=== PATIENT | female | born 1935 | race Caucasian/White ===

== ENCOUNTER 2019-12-02 18:05 | Emergency (ER) | payer MEDICARE ==
[~2019-12-02] VITALS: Ht 157.5 cm; Wt 68.0 kg
[2019-12-02 18:45] LABS: BASOPHILS % 0.4 % (0.0-1.0); EOSINOPHILS # (AUTO) 0.3 (0.0-0.4); EOSINOPHILS % 3.7 % (0.0-6.0); HEMOGLOBIN 11.9 g/dL (12.0-16.0); LYMPHOCYTES # (AUTO) 2.3 (1.0-3.2); LYMPHOCYTES % 32.1 % (18.0-39.1); MEAN CORPUSCULAR HEMOGLOBIN 28.4 pg (28-32); MEAN CORPUSCULAR HGB CONC 31.3 g/dL (31-35); MEAN CORPUSCULAR VOLUME 90.7 fL (81-99); MONOCYTES # (AUTO) 0.7 (0.2-0.8); MONOCYTES % 9.9 % (4.4-11.3); NEUTROPHILS # (AUTO) 3.8 (2.1-6.9); NEUTROPHILS % 53.5 % (38.7-80.0); PLATELET COUNT 262 x10e3/uL (140-360); RED BLOOD COUNT 4.19 x10e6/uL (3.6-5.1); RED CELL DISTRIBUTION WIDTH 13.6 % (11.7-14.4)
--- NOTE | 2019-12-02 18:56 | Emergency Department Note ---
History of Present Illnes History of Present Illness Chief Complaint: COVID PUI History of Present Illness This is a 84 year old female [employer]ONIAL [employer] PT SENT FOR AMS. [facility].....PT FROM [facility]. PT IS AWAKE AND TALKING AAOX2 TO 3. NAME, PLACE, AGE. DEEPAK FOURNIER STATES PT DOESNT WALK AND GETS AROUND IN A WHEELCHAIR. [place] FELT PT WAS ACTING HERSELF. ALSO PT HAD POSITIVE COVID TEST AT [facility] . Historian: Patient, Payment Manager/EMS Arrival Mode: WILL EMS Treatment PHYSICS TEACHER: See EMS Report Additional Treatment PHYSICS TEACHER: DEEPAK FOURNIER Onset (how long ago): unknown Location: none Quality: reported worse than normal ams Severity: mild Onset quality: unable to specify Timing of current episode: unable to specify Progression: unable to specify Context: Reports recent illness (positive for covid 19) Relieving factors: none Exacerbating factors: none Associated symptoms: Reports denies other symptoms Past Medical/Family History Physician Review I have reviewed the patient's past medical and family history. Any updates have been documented here. Past Medical History Recent Fever: Yes Clinical Suspicion of Infectio: Yes New/Unexplained Change in Ment: Yes Past Medical History: COPD, Asthma Other Medical History: DEMENTIA GERD MUSCLE WEAKNESS Past Surgical History: Cholecysctectomy, Appendectomy, Hysterectomy Social History Smoking Cessation: Never Smoker Counseling Performed: No Alcohol Use: None Any Illegal Drug Use: No Other Last Tetanus: UNK Any Pre-Existing Lines (PICC,: No Review of Systems Review of Systems Neurological: Reports as per HPI Physical Exam Related Data Allergies: Coded Allergies: iodine (Verified Allergy, Intermediate, 04/23/19) Triage Vital Signs Vital Signs Date Time Temp Pulse Resp B/P (MAP) Pulse Ox O2 Delivery O2 Flow Rate FiO2 12/02/19 18:07 97.8 79 20 121/94 98 Room Air Vital signs reviewed: Yes Physical Exam CONSTITUTIONAL Constitutional: Present well-developed, Present well-nourished HENT HENT: Present normocephalic, Present atraumatic, Present oropharynx clear/moist, Present nose normal HENT L/R: Present left ext ear normal, Present right ext ear normal EYES Eyes: Reports PERRL, Reports conjunctivae normal NECK Neck: Present ROM normal PULMONARY Pulmonary: Present effort normal, Present breath sounds normal CARDIOVASCULAR Cardiovascular: Present regular rhythm, Present heart sounds normal, Present capillary refill normal, Present normal rate GASTROINTESTINAL Abdominal: Present soft, Present nontender, Present bowel sounds normal GENITOURINARY Genitourinary: Present exam deferred SKIN Skin: Present warm, Present dry MUSCULOSKELETAL Musculoskeletal: Present ROM normal NEUROLOGICAL Neurological: Present alert, Present no gross motor or sensory deficits, Present other (pt keenly alert oriented to person and place, only disoriented saud time, states does not know why she is here) PSYCHOLOGICAL Psychological: Present mood/affect normal, Present judgement normal Results Laboratory Laboratory Laboratory Tests Test 12/02/19 19:51 12/02/19 18:22 Urine Color Yellow (YELLOW) Urine Clarity Clear (CLEAR) Urine pH 5.5 (5 - 7) Urine Specific [place] 1.025 (1.010-1.025) Urine Protein Negative (NEGATIVE) Urine Glucose (UA) Negative (NEGATIVE) Urine Ketones Trace (NEGATIVE) Urine Blood Negative (NEGATIVE) Urine Nitrite Negative (NEGATIVE) Urine Bilirubin 1+ (NEGATIVE) Urine Urobilinogen 0.2 mg/dL (0.2 - 1) Urine Leukocyte Esterase Negative (NEGATIVE) Urine RBC 0-5 /HPF (0-5) Urine WBC 0-5 /HPF (0-5) Urine Epithelial Cells Rare /LPF (NONE) Urine Bacteria Rare /HPF (NONE) White Blood Count 7.04 x10e3/uL (4.8-10.8) Red Blood Count 4.19 x10e6/uL (3.6-5.1) Hemoglobin 11.9 g/dL (12.0-16.0) Hematocrit 38.0 % (34.2-44.1) Mean Corpuscular Volume 90.7 fL (81-99) Mean Corpuscular Hemoglobin 28.4 pg (28-32) Mean Corpuscular Hemoglobin Concent 31.3 g/dL (31-35) Red Cell Distribution Width 13.6 % (11.7-14.4) Platelet Count 262 x10e3/uL (140-360) Neutrophils (%) (Auto) 53.5 % (38.7-80.0) Lymphocytes (%) (Auto) 32.1 % (18.0-39.1) Monocytes (%) (Auto) 9.9 % (4.4-11.3) Eosinophils (%) (Auto) 3.7 % (0.0-6.0) Basophils (%) (Auto) 0.4 % (0.0-1.0) Neutrophils # (Auto) 3.8 (2.1-6.9) Lymphocytes # (Auto) 2.3 (1.0-3.2) Monocytes # (Auto) 0.7 (0.2-0.8) Eosinophils # (Auto) 0.3 (0.0-0.4) Basophils # (Auto) 0.0 (0.0-0.1) Absolute Immature Granulocyte (auto 0.03 x10e3/uL (0-0.1) Sodium Level 138 mmol/L (136-145) Potassium Level 3.6 mmol/L (3.5-5.1) Chloride Level 102 mmol/L (98-107) Carbon Dioxide Level 23 mmol/L (22-29) Anion Gap 16.6 mmol/L (8-16) Blood Urea Nitrogen 13 mg/dL (7-26) Creatinine 0.77 mg/dL (0.57-1.11) Estimat Glomerular Filtration Rate > 60 ML/MIN (60-) BUN/Creatinine Ratio 17 (6-25) Glucose Level 86 mg/dL (74-118) Calcium Level 8.5 mg/dL (8.4-10.2) Total Bilirubin 0.4 mg/dL (0.2-1.2) Aspartate Amino Transf (AST/SGOT) 15 IU/L (5-34) Alanine Aminotransferase (ALT/SGPT) 8 IU/L (0-55) Alkaline Phosphatase 56 IU/L (40-150) Total Protein 6.7 g/dL (6.5-8.1) Albumin 3.2 g/dL (3.5-5.0) Globulin 3.5 g/dL (2.3-3.5) Albumin/Globulin Ratio 0.9 (0.8-2.0) Laboratory Tests Test 12/02/19 18:22 Lab results reviewed: Yes Imaging Imaging results reviewed: Yes Impressions no acute findings, no infiltrates Assessment & Plan Medical Decision Making [facility] pt sent from senior care for reported ams, pt with dementia is alert and oriented to person and place cbc, cmp, ua, cxr ordered to eval for electrolyte abnormality, uti, leukocytosis, pneumonia Assessment & Plan Final Impression: (1) Lab test positive for detection of COVID-19 virus (2) Dementia Depart Disposition: HOME, SELF-CARE Last Vital Signs Date Time Temp Pulse Resp B/P (MAP) Pulse Ox O2 Delivery O2 Flow Rate FiO2 12/02/19 18:19 98.4 64 16 115/37 98 Room Air OLGA REEVES MD Dec 02, 2019 18:56
[2019-12-02 19:09] LABS: ALANINE AMINOTRANSFERASE 8 IU/L (0-55); ALBUMIN 3.2 g/dL (3.5-5.0); ALBUMIN/GLOBULIN RATIO 0.9 (0.8-2.0); ALKALINE PHOSPHATASE 56 IU/L (40-150); ANION GAP 16.6 mmol/L (8-16); BLOOD UREA NITROGEN 13 mg/dL (7-26); BUN/CREATININE RATIO 17 (6-25); CALCIUM 8.5 mg/dL (8.4-10.2); CARBON DIOXIDE 23 mmol/L (22-29); CHLORIDE 102 mmol/L (98-107); CREATININE, SERUM 0.77 mg/dL (0.57-1.11); EST GLOMERULAR FILTRATION RATE > 60 ML/MIN (60-); GLUCOSE 86 mg/dL (74-118); POTASSIUM 3.6 mmol/L (3.5-5.1); SODIUM 138 mmol/L (136-145)
[2019-12-02 20:02] LABS: CLARITY,URINE CLEAR (CLEAR); COLOR,URINE YELLOW (YELLOW); LEUKOCYTE ESTERASE ,URINE NEGATIVE (NEGATIVE); NITRITE,URINE NEGATIVE (NEGATIVE); PROTEIN,URINE DIPSTICK NEGATIVE (NEGATIVE)
[2019-12-02 20:03] LABS: BILIRUBIN,URINE 1+ (NEGATIVE); KETONES,URINE TRACE (NEGATIVE); URINE UROBILINOGEN 0.2 mg/dL (0.2 - 1)
[2019-12-02 20:20] LABS: BACTERIA,URINE RARE /HPF; EPITHELIAL CELLS,URINE RARE /LPF; RBC,URINE 0-5 /HPF (0-5); WBC,URINE (MAN) 0-5 /HPF (0-5)
--- OUTSIDE RECORDS SUMMARY | 2019-12-02 20:50 | XMS REPORT | Continuity of Care Document ---
Author Author [facility] Organization [facility] Address [address] [place] [address] Phone Unavailable Care Team Providers Care Label Machine Operator Name Role Phone RONEL ALMENDAREZ MD PCP Elías REEEVS Unavailable Payers Payer Name Policy Type Policy Number Effective Date Expiration Date [id number] 2005 00:00:00 [facility] Medicare A & B [id number] 2002 00:00:00 [facility] Problems This patient has no known problems. Allergies, Adverse Reactions, Alerts Allergy Name Allergy Type Status Severity Reaction(s) Onset Date Inacti ve Date Treating Clinician Comments Source Iodinated Contrast- Oral and IV Dye DA Active MO 2019-05-16 5 00:00:00 [facility] Iodinated Contrast- Oral and IV Dye DA Active MO 2019-04-17 1 00:00:00 [facility] Iodine Allergy to Substance Active Moderate 2019-04-23 00:00:00 [facility] Iodinated Contrast- Oral and IV Dye DA Active MO 2019-02-14 2 00:00:00 [facility] Iodinated Contrast- Oral and IV Dye DA Active MO 2014-11-13 5 00:00:00 [facility] Medications This patient has no known medications. Procedures Procedure Date / Time Performed Performing Clinician Vilma valderrama Computed tomography of brain without radiopaque contrast 00:00:00 OLGA REEVES [facility] Computed tomography of cervical spine without contrast 04-23 00:00:00 OLGA REEVES [facility] Encounters Start Date/Time End Date/Time Encounter Type Admission Type Attendi [facility] Care Department Encounter ID Source 2019-04-23 19:42:00 2019-04-23 23:15:00 Departed Emergency Room 1 OLGA REEVES [facility] [id number] [facility] Results Test Description Test Time Test Comments Results Result Comments Source URINALYSIS COMPLETE 2019-05-30 20:52:00 Test Item UA COLOR (test code = COLU) YELLOW YELLOW UA APPEARANCE (test code = APPU) TURBID CLEAR A UA GLUCOSE DIPSTICK (test code = DGLUU) NEGATIVE mg/dL NEGATIVE UA BILIRUBIN DIPSTICK (test code = BILU) NEGATIVE mg/dL NEGATIVE UA KETONE DIPSTICK (test code = KETU) 40 (2+) mg/dL NEGATIVE A UA SPECIFIC GRAVITY (test code = SGU) 1.024 1.001-1.035 UA BLOOD DIPSTICK (test code = JONH) 0.2 mg/dL (2+) mg/dL NEGATIVE A UA PH DIPSTICK (test code = BRISSA) 5.5 5.0-8.0 UA PROTEIN DIPSTICK (test code = PROU) 70 (1+) mg/dL NEGATIVE A UA UROBILINIOGEN DIPSTICK (test code = URO) Normal mg/dL NEGATIVE UA NITRITE DIPSTICK (test code = KARELY) POSITIVE NEGATIVE A UA LEUKOCYTE ESTERASE W REFLEX (test code = LEUUR) 500 Deirdre/u L (3+) Deirdre/uL NEGATIVE A UA WBC (test code = WBCU) >200 per HPF 0-5 A UA RBC (test code = RBCU) 6-10 #/HPF 0-5 A UA WBC CLUMPS (test code = WBCUCL) >10 /HPF NONE A UA EPITHELIAL CELLS (test code = EPIU) FEW per HPF FEW UA BACTERIA (test code = BACU) MANY #/HPF NONE A UA MUCUS (test code = MUCU) FEW #/LPF FEW Urine Source? Clean CatchURINALYSIS [id number] 20:43:00* Test Item Value Reference Range Interpretation Comments UA COLOR (test code = COLU) YELLOW YELLOW UA APPEARANCE (test code = APPU) TURBID CLEAR A UA GLUCOSE DIPSTICK (test code = DGLUU) NEGATIVE mg/dL NEGATIVE UA BILIRUBIN DIPSTICK (test code = BILU) NEGATIVE mg/dL NEGATIVE UA KETONE DIPSTICK (test code = KETU) 40 (2+) mg/dL NEGATIVE A UA SPECIFIC GRAVITY (test code = SGU) 1.024 1.001-1.035 UA BLOOD DIPSTICK (test code = JONH) 0.2 mg/dL (2+) mg/dL NEGATIVE A UA PH DIPSTICK (test code = BRISSA) 5.5 5.0-8.0 UA PROTEIN DIPSTICK (test code = PROU) 70 (1+) mg/dL NEGATIVE A UA UROBILINIOGEN DIPSTICK (test code = URO) Normal mg/dL NEGATIVE UA NITRITE DIPSTICK (test code = KARELY) POSITIVE NEGATIVE A UA LEUKOCYTE ESTERASE W REFLEX (test code = LEUUR) 500 Deirdre/u L (3+) Deirdre/uL NEGATIVE A UA WBC (test code = WBCU) per HPF 0-5 UA RBC (test code = RBCU) per HPF 0-5 UA EPITHELIAL CELLS (test code = EPIU) per HPF Few UA BACTERIA (test code = BACU) per HPF NONE Urine Source? Clean CatchBASIC METABOLIC [id number] 18:20:00* Test Item Value Reference Range Interpretation Comments SODIUM (test code = NA) 134 mmol/L 136-145 L POTASSIUM (test code = K) 3.5 mmol/L 3.5-5.1 N CHLORIDE (test code = CL) 98.0 mmol/L 98-107 N CARBON DIOXIDE (test code = CO2) 29.0 mmol/L 21-32 N ANION GAP (test code = GAP) 10.5 10-20 N GLUCOSE (test code = GLU) 96 mg/dL 74-106 N BLOOD UREA NITROGEN (test code = BUN) 17 mg/dL 7-18 N GLOMERULAR FILTRATION RATE (test code = GFR) 53 mL/min >=60 Estimated GFR by using Modified MDRD formula.Chronic kidney disease is defined as either kidney damageor GFR <60 mL/min/1.73 m2 for >3 months. CREATININE (test code = CREAT) 1.00 mg/dL 0.55-1.02 N Note change in reference range due to change in reagent. BUN/CREATININE RATIO (test code = BUN/CREA) 17.0 10-20 N CALCIUM (test code = CA) 9.0 mg/dL 8.5-10.1 N HEPATIC FUNCTION [id number] 18:20:00* Test Item Value Reference Range Interpretation Comments TOTAL PROTEIN (test code = PROT) 7.8 gram/dL 6.4-8.2 N ALBUMIN (test code = ALB) 3.0 g/dL 3.4-5.0 L GLOBULIN (test code = GLOB) 4.8 gram/dL 2.7-4.2 H ALBUMIN/GLOBULIN RATIO (test code = A/G) 0.6 0.75-1.50 L BILIRUBIN TOTAL (test code = BILT) 0.60 mg/dL 0.0-1.0 N BILIRUBIN DIRECT (test code = BILD) 0.17 mg/dL 0.0-0.20 N SGOT/AST (test code = AST) 10 IUnit/L 15-37 L SGPT/ALT (test code = ALT) 13 IUnit/L 12-78 N ALKALINE PHOSPHATASE TOTAL (test code = ALKP) 87 IUnit/L 45-117 N Note change in reference range due to change in reagent. [id number] 18:20:00* Test Item Value Reference Range Interpretation Comments TROPONIN-I (test code = TROPI) <0.015 ng/mL 0-0.045 N BASIC METABOLIC [id number] 18:14:00* Test Item Value Reference Range Interpretation Comments SODIUM (test code = NA) 134 mmol/L 136-145 L POTASSIUM (test code = K) 3.5 mmol/L 3.5-5.1 N CHLORIDE (test code = CL) 98.0 mmol/L 98-107 N CARBON DIOXIDE (test code = CO2) mmol/L 21-32 ANION GAP (test code = GAP) 10-20 GLUCOSE (test code = GLU) mg/dL 74-106 BLOOD UREA NITROGEN (test code = BUN) mg/dL 7-18 GLOMERULAR FILTRATION RATE (test code = GFR) mL/min >=60 CREATININE (test code = CREAT) mg/dL 0.55-1.02 BUN/CREATININE RATIO (test code = BUN/CREA) 10-20 CALCIUM (test code = CA) mg/dL 8.5-10.1 HEPATIC FUNCTION [id number] 18:14:00* Test Item Value Reference Range Interpretation Comments TOTAL PROTEIN (test code = PROT) gram/dL 6.4-8.2 ALBUMIN (test code = ALB) g/dL 3.4-5.0 GLOBULIN (test code = GLOB) gram/dL 2.7-4.2 ALBUMIN/GLOBULIN RATIO (test code = A/G) 0.75-1.50 BILIRUBIN TOTAL (test code = BILT) mg/dL 0.0-1.0 BILIRUBIN DIRECT (test code = BILD) mg/dL 0.0-0.20 SGOT/AST (test code = AST) IUnit/L 15-37 SGPT/ALT (test code = ALT) IUnit/L 12-78 ALKALINE PHOSPHATASE TOTAL (test code = ALKP) IUnit/L 45-117 [id number] 18:14:00* Test Item Value Reference Range Interpretation Comments TROPONIN-I (test code = TROPI) ng/mL 0-0.045 CBC W/AUTO [id number] 18:04:00* Test Item Value Reference Range Interpretation Comments WHITE BLOOD CELL (test code = WBC) 9.0 K/mm3 4.5-12.5 N RED BLOOD CELL (test code = RBC) 4.48 mill/mm3 3.7-5.2 N HEMOGLOBIN (test code = HGB) 13.2 gram/dL 11.5-15.5 N HEMATOCRIT (test code = HCT) 40.4 % 36.0-46.0 N MEAN CELL VOLUME (test code = MCV) 90.2 fL 80-98 N MEAN CELL HGB (test code = MCH) 29.5 picogram 27.0-33.0 N MEAN CELL HGB CONCETRATION (test code = MCHC) 32.7 gram/dL 33.0-36. 0 L RED CELL DISTRIBUTION WIDTH (test code = RDW) 13.0 % 11.6-16. 2 N RED CELL DISTRIBUTION WIDTH SD (test code = RDW-SD) 43.1 fL 37 .0-51.0 N PLATELET COUNT (test code = PLT) 292 K/mm3 150-450 N MEAN PLATELET VOLUME (test code = MPV) 8.8 fL 6.7-11.0 N NEUTROPHIL % (test code = NT%) 68.9 % 39.0-69.0 N IMMATURE GRANULOCYTE % (test code = IG%) 0.7 % 0.0-5.0 N LYMPHOCYTE % (test code = LY%) 17.2 % 25.0-55.0 L MONOCYTE % (test code = MO%) 12.1 % 0.0-10.0 H EOSINOPHIL % (test code = EO%) 0.8 % 0.0-5.0 N BASOPHIL % (test code = BA%) 0.3 % 0.0-1.0 N NUCLEATED RBC % (test code = NRBC%) 0.0 % 0-0 N NEUTROPHIL # (test code = NT#) 6.22 K/mm3 1.8-7.7 N IMMATURE GRANULOCYTE # (test code = IG#) 0.06 x10 3/uL 0-0.03 H LYMPHOCYTE # (test code = LY#) 1.55 K/mm3 1.0-5.0 N MONOCYTE # (test code = MO#) 1.09 K/mm3 0-0.8 H EOSINOPHIL # (test code = EO#) 0.07 K/mm3 0.0-0.5 N BASOPHIL # (test code = BA#) 0.03 K/mm3 0.0-0.2 N NUCLEATED RBC # (test code = NRBC#) 0.00 K/mm3 0.0-0.1 N CBC W/AUTO [id number] 18:03:00* Test Item Value Reference Range Interpretation Comments WHITE BLOOD CELL (test code = WBC) K/mm3 4.5-12.5 RED BLOOD CELL (test code = RBC) mill/mm3 3.7-5.2 HEMOGLOBIN (test code = HGB) 13.2 gram/dL 11.5-15.5 N HEMATOCRIT (test code = HCT) 40.4 % 36.0-46.0 N MEAN CELL VOLUME (test code = MCV) fL 80-98 MEAN CELL HGB (test code = MCH) picogram 27.0-33.0 MEAN CELL HGB CONCETRATION (test code = MCHC) gram/dL 33.0-36. 0 RED CELL DISTRIBUTION WIDTH (test code = RDW) % 11.6-16. 2 RED CELL DISTRIBUTION WIDTH SD (test code = RDW-SD) fL 37 .0-51.0 PLATELET COUNT (test code = PLT) K/mm3 150-450 MEAN PLATELET VOLUME (test code = MPV) fL 6.7-11.0 NEUTROPHIL % (test code = NT%) % 39.0-69.0 IMMATURE GRANULOCYTE % (test code = IG%) % 0.0-5.0 LYMPHOCYTE % (test code = LY%) % 25.0-55.0 MONOCYTE % (test code = MO%) % 0.0-10.0 EOSINOPHIL % (test code = EO%) % 0.0-5.0 BASOPHIL % (test code = BA%) % 0.0-1.0 NEUTROPHIL # (test code = NT#) K/mm3 1.8-7.7 LYMPHOCYTE # (test code = LY#) K/mm3 1.0-5.0 MONOCYTE # (test code = MO#) K/mm3 0-0.8 EOSINOPHIL # (test code = EO#) K/mm3 0.0-0.5 BASOPHIL # (test code = BA#) K/mm3 0.0-0.2 - XR CHEST 1 [id number] 17:37:00 FAX: King Enamorado DO [place]: B St: [facility] FAX: Sukh Hilliard [facility] [phone] Name: GARY FERRELL [facility] : 1935 Age/S: 83/F [address] Unit #: [id number] Loc: [place] [address] Phys: King Enamorado DO Acct: [id number] Dis Date: Status: REG ER PHONE #: [phone] Exam Date: 05/30/2019 1750 FAX #: [phone] Reason: Altered Mental Status EXAMS: CPT CODE: [id number] XR CHEST 1 V 73403 HISTORY: Altered Mental Status TECHNIQUE: AP chest x-ray COMPARISON: 03/06/19 FINDINGS: No airspace consolidation or pleural effusion. Biapical pleural parenchymal scarring. Normal heart size. Atherosclerotic vascular calcification of the thoracic aorta. Thoracic spondylosis. Bilateral calcified breast implants. IMPRESSION: No acute findings or significant interval change. LOCATION: LP at 1737 Reported and signed by: Loli Snyder D.O. CC: King Enamorado DO; Sukh Farah Technologist: RT KATELYN(Shaji) Trnscrd Date/Time/By: 05/30/2019 (173) : By: [email or web address] Orig Print D/T: S: 05/30/2019 (9147) PAGE 1 Signed Report - CT HEAD/BRAIN W/O [id number] 17:33:00 Name: GARY FERRELL [facility] : 1935 Age/S: 83 / F [address] [facility]: [id number] Loc: [place] [address] Phys: King Enamorado DO Acct: [id number] Dis Date: Status: REG ER PHONE #: [phone] Exam Date: 05/30/2019 1727 FAX #: [phone] Reason: Altered Mental Status EXAMS: CPT CODE: [id number] CT HEAD/BRAIN W/O CONT 30655 HISTORY: Altered Mental Status TECHNIQUE: Noncontrast 2.[address] of the head. Examination acquired within 24 hours of arrival. Automated exposure control for dose reduction; DLP: 1748 mGy-cm. COMPARISON: 05/15/19 FINDINGS: No acute hemorrhage. No CT evidence of acute infarct. 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 Severe periventricular chronic microvascular ischemic changes. No intracranial mass or mass effect. Mild global parenchymal atrophy with ex vacuo dilation of the ventricular system. No hydrocephalus. No extra-axial fluid collection. Atherosclerotic vascular calcification of the carotid siphons. Visualized paranasal sinuses are clear. Mastoid air cells and middle ear cavities are clear. Right lens implant. Calvarium and skull base are intact. IMPRESSION: No acute intracranial process. No significant interval change. LOCATION: at 1733 Reported and signed by: Loli Snyder D.O. CC: King Enamorado DO; Sukh Farah Technologist:Yolanda Schultz RT(R),CT CTDI: DLP: Trnscb Date/Time: 05/30/2019 (173) [email or web address] Orig Print D/T: S: 05/30/2019 (9737) PAGE 1 Signed Report - CT C-SPINE W/O [id number] 16:54:00 Name: GARY FERRELL [facility] : 1935 Age/S: 83 / F [address] [facility] Unit #: [id number] Loc: [place] [address] Phys: Shala Worrell MD Acct: [id number] Di s Date: Status: REG ER PHONE #: Exam Date: 05/15/2019 2708 FAX #: [phone] Reason: HEAD INJURY, FALL EXAMS: CPT CODE: [id number] CT C-SPINE W/O CONTRAST 58279 EXAM: CT of the cervical spine without contrast; INFORMATION: Neck pain after fall; TECHNIQUE AND FINDINGS: CT dose reduction protocol; 2.5 mm ax ial scans; sagittal and coronal reconstructions. There is good alignment o f the cervical spine. Vertebral bodies, the dens and posterior elements ar e intact. Normal height of intervertebral discs. Small anterior oste ophytes in the lower cervical spine. Mild degenerative changes of facet krishna ints bilaterally. Soft tissue windows show no abnormalities, except for ca lcifications of the carotid arteries. IMPRESSION: 1. No evidence of acute osseous trauma. 2. Minimal spondylosis and mild facet joint arthropathy. Location code: [facility] at 1654 Reported and signed by: Ashley Barbosa M.D. CC: Shala Worrell MD; Sukh Farah Technologist:Akila Mello RT(R); JEANNE Cortez CTDI: DLP: Trnscb Date/Time: 05/15/2019 (1653) [email or web address] Orig Print D/T: S: 05/15/2019 (7872) PAGE 1 Signed Report - CT HEAD/BRAIN W/O [id number] 16:38:00 Name: GARY FERRELL [facility] : 1935 Age/S: 83 / F [address] [facility] Unit #: [id number] Loc: [place] [address] Phys: Shala Worrell MD Acct: [id number] Di s Date: Status: REG ER PHONE #: Exam Date: 05/15/2019 1554 FAX #: Reason: HEAD INJURY EXAMS: CPT CODE: [id number] CT HEAD/BRAIN W/O CONT 64497 EXAM: CT of the head with out contrast; INFORMATION: Headache after fall with head injury; TECHNIQUE AND FINDINGS: CT dose reduction protocol; 2.5 mm axial scans; There is no evidence of intra or extra-axial hemorrhage, mass lesions or midline shift. Extensive periventricular and deep wh ite matter hypodensities, similar to the study from March 06, 2019. Sma ll, chronic lacunar infarct in the left thalamus. Ventricles are sym metric and mildly dilated. Sulci and basilar cisterns are intact. Th e calvarium is intact. No evidence of skull fracture. Paranasal sinuses an d mastoid air cells are well aerated. IMPRESSION: 1. No evidence of intracranial hemorrhage or acute territorial infarction. 2. Extensive chronic ischemic white matter changes and mild atrophy. Location code: [facility] at 1638 Reported and signed by: Dany Barbosa M.D. CC: Shala Worrell MD; Sukh Farah Technologist:Akila Mello RT(R); JEANNE Cortez CTDI: DLP: Trnscb Date/Time: 05/15/2019 (8884) Trung Orig Print D/T: S: 05/15/2019 (4931) PAGE 1 Signed Report HAND 3+ VIEWS [id number] 21:11:00 [place] [address] Patient Name: GARY FERRELL MR #: [id number] : 1935 Age/Sex: 83/F Req #: [id number] Adm Physician: Ordered by: OLGA REEVES MD Report #: [id number] Location: ER Room/Bed: Procedure: [id number] DX/HAND 3+ VIEWS RIGHT Exam Date: Exam Time: REPORT STATUS: Signed Exam: Right wrist 3 views and hand 3 views History: Pain Comparison: None. Findings: Comminuted intraarticular fracture of the distal radius and ulnar s tyloid avulsion. Soft tissues swelling. Impression: Comminuted intraar ticular fracture of the distal radius and ulnar styloid avulsion Signed b y: Dr. Jose Luis Saavedra M.D. on 04/23/2019 9:15 PM Dictated By: JOSE LUIS VARNER MD 14 Transcr ibed By: DEQUAN on 04/23/192114 COPY TO: OLGA REEVES MD WRIST COMPLETE [id number] 21:11:00 [place] [address] Patient Name: GARY FERRELL MR #: [id number] : 1935 Age/Sex: 83/F Req #: [id number] Adm Physician: Ordered by: OLGA REEVES MD Report #: [id number] Location: ER Room/Bed: Procedure: [id number] DX/WRIST COMPLETE RIGHT Exam Date: Exam Time: REPORT STATUS: Signed Exam: Right wrist 3 views and hand 3 views History: Pain Comparison: None. Findings: Comminuted intraarticular fracture of the distal radius and ulnar styloid avulsion. Soft tissues swelling. Impression: Comminuted intraa rticular fracture of the distal radius and ulnar styloid avulsion Signed by: Dr. Jose Luis Saavedra M.D. on 04/23/2019 9:15 PM Dictated By: JOSE LUIS TRIVEDI MD 14 Transc ribed By: DEQUAN on 04/23/192114 COPY TO: OLGA REEVES MD CT CERVICAL SPINE [id number] 20:43:00 [place] [address] Patient Name: GARY FERRELL MR #: [id number] : 1935 Age/Sex: 83/F Req #: [id number] Adm Physician: Ordered by: OLGA REEVES MD Report #: [id number] Location: ER Room/Bed: Procedure: [id number] CT/CT CERVICAL SPINE WO Exam Date: Exam Time: REPORT STATUS: Signed History: Trau ma, fall Comparison studies: None Technique: Axial images were obtaine d through the cervical region.. Coronal and sagittal images reconstructed from the axial data.. Intravenous contrast: None Findings: Fractures: No ne. Atlantoaxial articulation: Intact. Alignment: Normal cervical lordosi s. Minimal retrolisthesis of C3 on C4 and anterolisthesis of C7 on T1 is most likely degenerative in etiology. Cervicomedullary junction: No abnormalitie s. The foramen magnum is patent. Soft tissues: No gross acute abnormalities. Vertebrae: No fractures, infection or neoplasm. Incidental congenital atlantooccipital assimilation. Degenerative changes: Mild multilevel dis c degeneration. Minimal retrolisthesis of C3 on C4 with associated disc osteop hyte complex results in mild to moderate canal stenosis. Advanced multilevel f acet arthrosis. Multilevel uncovertebral facet arthrosis with moderate foramin al stenosis on the left at C3-C4 and mild to moderate foraminal stenosis on th e left at C4-C5. Incidental findings: Minimal opacification or small effu sions at the bilateral mastoid tips. Scattered calcified atherosclerosis. No nspecific scarring at the bilateral lung apices with partially imaged linear c alcification at the right lung apex. IMPRESSION: 1. No cervical spine fracture or acute subluxation. 2. Multilevel degenerative changes as describ ed. Ligament, spinal cord and or vascular abnormalities cannot be excluded on the basis of this examination Signed by: Andrés Alonzo on 04/23/2019 8:52 PM Dictated By: JORGE LUIS MCFARLAND MD Electronically S igned By: JORGE LUIS MCFARLAND MD on 04/23/192051 Transcribed By: DEQUAN on 2051 COPY TO: OLGA REEVES MD CT BRAIN [id number] 20:36:00 [place] [address] Patient Name: GARY FERRELL MR #: [id number] : 1935 Age/Sex: 83/F Req #: [id number] [facility] Physician: Ordered by: OLGA REEVES MD Report #: [id number] Location: ER Room/Bed: Procedure: [id number] CT/CT BRAIN WO Exam Date: Exam Time: REPORT STATUS: Signed Exam: Head CT without contrast History: Trauma, fall Comparison studies: None Technique: Axial images were obtained from the skull base to the vertex. Coronal and sagi ttal images reconstructed from the axial data. Dose modulation, iterative rec onstruction, and/or weight based adjustment of the mA/kV was utilized to reduc e the radiation dose to as low as reasonably achievable. Radiation dose : Total DLP: 1021 mGy*cm. Estimated effective dose: DLP x 0.015 Intrave nous contrast: None Findings: Scalp: No abnormalities. Bones: No fra ctures, blastic or lytic lesions. Brain sulci: Mildly prominent. Ventricl es: Moderately dilated, slightly disproportionate to sulcal prominence is most likely due to a degree of central greater peripheral cortical volume loss. No acute hydrocephalus. Extra-axial spaces: No masses, no fluid collection. Parenchyma: No mass, acute hemorrhage or acute or chronic cortical insul ts. Chronic lacunar infarcts in the left thalamus and anterior left subinsular white matter. Sellar/suprasellar region: No abnormalities. Craniocervical junction: Patent foramen magnum. No Chiari one malformation. Incidental f indings: Atherosclerotic calcifications in the carotid siphons. Bilateral l ens replacements presumably related to previous cataract surgery. IMPRESSI ON: No acute abnormalities. Chronic findings: 1. Mild to moderate generalized brain volume loss. 2. Chronic left thalamic and left subinsular l acunar infarcts. 3. Moderate chronic microvascular ischemic changes. Si gned by: Dr. Jorge Luis Mcfarland M.D. on 04/23/2019 8:44 PM Dictated By: JORGE LUIS MCFARLAND MD 43 Farah scribed By: DEQUAN on 04/23/192043 COPY TO: OLGA REEVES MD [id number] 16:39:00* Test Item Value Reference Range Interpretation Comments GLUBED (test code = GLUBED) 113 mg/dL 74-106 H Performed by certified table operator at [facility] BASIC METABOLIC [id number] 07:27:00* Test Item Value Reference Range Interpretation Comments SODIUM (test code = NA) 136 mmol/L 136-145 N POTASSIUM (test code = K) 4.0 mmol/L 3.5-5.1 N CHLORIDE (test code = CL) 101.0 mmol/L 98-107 N CARBON DIOXIDE (test code = CO2) 25.0 mmol/L 21-32 N ANION GAP (test code = GAP) 14.0 10-20 N GLUCOSE (test code = GLU) 87 mg/dL 74-106 N BLOOD UREA NITROGEN (test code = BUN) 15 mg/dL 7-18 N GLOMERULAR FILTRATION RATE (test code = GFR) > 60 mL/min >=60 Estimated GFR by using Modified MDRD formula.Chronic kidney disease is defined as either kidney damageor GFR <60 mL/min/1.73 m2 for >3 months. CREATININE (test code = CREAT) 0.80 mg/dL 0.55-1.02 N Note change in reference range due to change in reagent. BUN/CREATININE RATIO (test code = BUN/CREA) 17.8 10-20 N CALCIUM (test code = CA) 8.3 mg/dL 8.5-10.1 L [id number] 07:27:00* Test Item Value Reference Range Interpretation Comments PHOSPHORUS (test code = PHOS) 3.4 mg/dL 2.5-4.9 N [id number] 07:27:00* Test Item Value Reference Range Interpretation Comments MAGNESIUM (test code = MAG) 2.1 mg/dL 1.8-2.4 N BASIC METABOLIC [id number] 07:21:00* Test Item Value Reference Range Interpretation Comments SODIUM (test code = NA) 136 mmol/L 136-145 N POTASSIUM (test code = K) 4.0 mmol/L 3.5-5.1 N CHLORIDE (test code = CL) 101.0 mmol/L 98-107 N CARBON DIOXIDE (test code = CO2) mmol/L 21-32 ANION GAP (test code = GAP) 10-20 GLUCOSE (test code = GLU) mg/dL 74-106 BLOOD UREA NITROGEN (test code = BUN) mg/dL 7-18 GLOMERULAR FILTRATION RATE (test code = GFR) mL/min >=60 CREATININE (test code = CREAT) mg/dL 0.55-1.02 BUN/CREATININE RATIO (test code = BUN/CREA) 10-20 CALCIUM (test code = CA) mg/dL 8.5-10.1 [id number] 07:21:00* Test Item Value Reference Range Interpretation Comments PHOSPHORUS (test code = PHOS) mg/dL 2.5-4.9 [id number] 07:21:00* Test Item Value Reference Range Interpretation Comments MAGNESIUM (test code = MAG) mg/dL 1.8-2.4 CBC W/AUTO [id number] 06:54:00* Test Item Value Reference Range Interpretation Comments WHITE BLOOD CELL (test code = WBC) 4.8 K/mm3 4.5-12.5 N RED BLOOD CELL (test code = RBC) 4.64 mill/mm3 3.7-5.2 N HEMOGLOBIN (test code = HGB) 15.1 gram/dL 11.5-15.5 N HEMATOCRIT (test code = HCT) 45.0 % 36.0-46.0 N MEAN CELL VOLUME (test code = MCV) 97.0 fL 80-98 N MEAN CELL HGB (test code = MCH) 32.5 picogram 27.0-33.0 N MEAN CELL HGB CONCETRATION (test code = MCHC) 33.6 gram/dL 33.0-36. 0 N RED CELL DISTRIBUTION WIDTH (test code = RDW) 13.5 % 11.6-16. 2 N RED CELL DISTRIBUTION WIDTH SD (test code = RDW-SD) 48.6 fL 37 .0-51.0 N PLATELET COUNT (test code = PLT) 154 K/mm3 150-450 N MEAN PLATELET VOLUME (test code = MPV) 9.0 fL 6.7-11.0 N NEUTROPHIL % (test code = NT%) 63.7 % 39.0-69.0 N IMMATURE GRANULOCYTE % (test code = IG%) 0.4 % 0.0-5.0 N LYMPHOCYTE % (test code = LY%) 18.9 % 25.0-55.0 L MONOCYTE % (test code = MO%) 16.0 % 0.0-10.0 H EOSINOPHIL % (test code = EO%) 0.2 % 0.0-5.0 N BASOPHIL % (test code = BA%) 0.8 % 0.0-1.0 N NUCLEATED RBC % (test code = NRBC%) 0.0 % 0-0 N NEUTROPHIL # (test code = NT#) 3.02 K/mm3 1.8-7.7 N IMMATURE GRANULOCYTE # (test code = IG#) 0.02 x10 3/uL 0-0.03 N LYMPHOCYTE # (test code = LY#) 0.90 K/mm3 1.0-5.0 L MONOCYTE # (test code = MO#) 0.76 K/mm3 0-0.8 N EOSINOPHIL # (test code = EO#) 0.01 K/mm3 0.0-0.5 N BASOPHIL # (test code = BA#) 0.04 K/mm3 0.0-0.2 N NUCLEATED RBC # (test code = NRBC#) 0.00 K/mm3 0.0-0.1 N CBC W/AUTO [id number] 06:53:00* Test Item Value Reference Range Interpretation Comments WHITE BLOOD CELL (test code = WBC) K/mm3 4.5-12.5 RED BLOOD CELL (test code = RBC) mill/mm3 3.7-5.2 HEMOGLOBIN (test code = HGB) 15.1 gram/dL 11.5-15.5 N HEMATOCRIT (test code = HCT) 45.0 % 36.0-46.0 N MEAN CELL VOLUME (test code = MCV) fL 80-98 MEAN CELL HGB (test code = MCH) picogram 27.0-33.0 MEAN CELL HGB CONCETRATION (test code = MCHC) gram/dL 33.0-36. 0 RED CELL DISTRIBUTION WIDTH (test code = RDW) % 11.6-16. 2 RED CELL DISTRIBUTION WIDTH SD (test code = RDW-SD) fL 37 .0-51.0 PLATELET COUNT (test code = PLT) K/mm3 150-450 MEAN PLATELET VOLUME (test code = MPV) fL 6.7-11.0 NEUTROPHIL % (test code = NT%) % 39.0-69.0 IMMATURE GRANULOCYTE % (test code = IG%) % 0.0-5.0 LYMPHOCYTE % (test code = LY%) % 25.0-55.0 MONOCYTE % (test code = MO%) % 0.0-10.0 EOSINOPHIL % (test code = EO%) % 0.0-5.0 BASOPHIL % (test code = BA%) % 0.0-1.0 NEUTROPHIL # (test code = NT#) K/mm3 1.8-7.7 LYMPHOCYTE # (test code = LY#) K/mm3 1.0-5.0 MONOCYTE # (test code = MO#) K/mm3 0-0.8 EOSINOPHIL # (test code = EO#) K/mm3 0.0-0.5 BASOPHIL # (test code = BA#) K/mm3 0.0-0.2 CREATINE KINASE (CK)2019-03-06 20:15:00* Test Item Value Reference Range Interpretation Comments CREATINE KINASE (CK) (test code = CK) 84 IUnit/L 26-208 N - CT HEAD/BRAIN W/O [id number] 19:49:00 Name: GARY FERRELL [facility] : 1935 Age/S: 83 [facility] F [address] [facility] Unit #: [id number] Loc: [place] [address] Phys: King Enamorado DO Acct: [id number] Dis Date: Status: REG ER PHONE #: [phone] Exam Date: 03/06/2019 1855 FAX #: [phone] Reason: Altered Mental Status EXAMS: CPT CODE: [id number] CT HEAD/BRAIN W/O CONT 16184 REASON FOR EXAM: Altered Mental Status EXAM ORDER DATE: 03/06/2019 6:01 PM Ordering: King Enamorado DO Attending:King Enamorado DO Location: PROCEDURE: - CT HEAD/BRAIN W/O CONT COMPARISON: 01/10/2008 FINDINGS: CT images of the brain were obtained without IV contrast. Dose modulation, iterative reconstruction, and/or weight based adjustment of the MA/KV was utilized to reduce the radiation dose to as low as reasonably achievable. Mild patchy low densities appearance of the paraventricular region noted consistent with nonspecific white matter disease. The gregorio-white matter delineation is unremarkable. The ventricles, cisterns, and sulci are unremarkable. There is no evidence of hemorrhage, mass, mass effect. There is no evidence of acute infarct. The calvarium is intact. 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 No acute findings at 1949 Reported and signed by: Robert Marin M.D. CC: King Enamorado DO; Sukh Farah [facility] Technolog ist:Rajeev Dueñas RT(R) CTDI: DLP: Trnscb Date/Time: 05/06/2018 (1948) SundeepL Orig Print D/T: S: 03/06/2019 (1952) PAGE 1 Signed Report URINALYSIS [id number] 19:41:00* Test Item Value Reference Range Interpretation Comments UA COLOR (test code = COLU) YELLOW YELLOW UA APPEARANCE (test code = APPU) CLEAR CLEAR UA GLUCOSE DIPSTICK (test code = DGLUU) NEGATIVE mg/dL NEGATIVE UA BILIRUBIN DIPSTICK (test code = BILU) NEGATIVE NEGATIVE UA KETONE DIPSTICK (test code = KETU) 1+ mg/dL NEGATIVE UA SPECIFIC GRAVITY (test code = SGU) 1.025 1.001-1.035 UA BLOOD DIPSTICK (test code = JONH) 3+ (Large) NEGATIVE A UA PH DIPSTICK (test code = BRISSA) 5.5 5.0-8.0 UA PROTEIN DIPSTICK (test code = PROU) NEGATIVE mg/dL Neg-15 UA UROBILINIOGEN DIPSTICK (test code = URO) 0.2 mg/dL 0.0-0.2 UA NITRITE DIPSTICK (test code = KARELY) NEGATIVE NEGATIVE UA LEUKOCYTE ESTERASE W REFLEX (test code = LEUUR) NEGATIVE NEG ATIVE UA WBC (test code = WBCU) 0-5 per HPF 0-5 UA RBC (test code = RBCU) 0-2 per HPF 0-5 UA EPITHELIAL CELLS (test code = EPIU) Rare (0-1/hpf) per HPF Few UA BACTERIA (test code = BACU) TRACE per HPF NONE Urine Source? Clean CatchURINALYSIS [id number] 19:34:00* Test Item Value Reference Range Interpretation Comments UA COLOR (test code = COLU) YELLOW YELLOW UA APPEARANCE (test code = APPU) CLEAR CLEAR UA GLUCOSE DIPSTICK (test code = DGLUU) NEGATIVE mg/dL NEGATIVE UA BILIRUBIN DIPSTICK (test code = BILU) NEGATIVE NEGATIVE UA KETONE DIPSTICK (test code = KETU) 1+ mg/dL NEGATIVE UA SPECIFIC GRAVITY (test code = SGU) 1.025 1.001-1.035 UA BLOOD DIPSTICK (test code = JONH) 3+ (Large) NEGATIVE A UA PH DIPSTICK (test code = BRISSA) 5.5 5.0-8.0 UA PROTEIN DIPSTICK (test code = PROU) NEGATIVE mg/dL Neg-15 UA UROBILINIOGEN DIPSTICK (test code = URO) 0.2 mg/dL 0.0-0.2 UA NITRITE DIPSTICK (test code = KARELY) NEGATIVE NEGATIVE UA LEUKOCYTE ESTERASE W REFLEX (test code = LEUUR) NEGATIVE NEG ATIVE UA WBC (test code = WBCU) per HPF 0-5 UA RBC (test code = RBCU) per HPF 0-5 UA EPITHELIAL CELLS (test code = EPIU) per HPF Few UA BACTERIA (test code = BACU) per HPF NONE Urine Source? Clean CatchBASIC METABOLIC [id number] 19:10:00* Test Item Value Reference Range Interpretation Comments SODIUM (test code = NA) 135 mmol/L 136-145 L POTASSIUM (test code = K) 4.0 mmol/L 3.5-5.1 N CHLORIDE (test code = CL) 100.0 mmol/L 98-107 N CARBON DIOXIDE (test code = CO2) 25.0 mmol/L 21-32 N ANION GAP (test code = GAP) 14.0 10-20 N GLUCOSE (test code = GLU) 116 mg/dL 74-106 H BLOOD UREA NITROGEN (test code = BUN) 11 mg/dL 7-18 N GLOMERULAR FILTRATION RATE (test code = GFR) 53 mL/min >=60 Estimated GFR by using Modified MDRD formula.Chronic kidney disease is defined as either kidney damageor GFR <60 mL/min/1.73 m2 for >3 months. CREATININE (test code = CREAT) 1.00 mg/dL 0.55-1.02 N Note change in reference range due to change in reagent. BUN/CREATININE RATIO (test code = BUN/CREA) 10.6 10-20 N CALCIUM (test code = CA) 8.9 mg/dL 8.5-10.1 N HEPATIC FUNCTION [id number] 19:10:00* Test Item Value Reference Range Interpretation Comments TOTAL PROTEIN (test code = PROT) 7.8 gram/dL 6.4-8.2 N ALBUMIN (test code = ALB) 4.1 g/dL 3.4-5.0 N GLOBULIN (test code = GLOB) 3.7 gram/dL 2.7-4.2 N ALBUMIN/GLOBULIN RATIO (test code = A/G) 1.1 0.75-1.50 N BILIRUBIN TOTAL (test code = BILT) 0.60 mg/dL 0.0-1.0 N BILIRUBIN DIRECT (test code = BILD) 0.15 mg/dL 0.0-0.20 N SGOT/AST (test code = AST) 18 IUnit/L 15-37 N SGPT/ALT (test code = ALT) 23 IUnit/L 12-78 N ALKALINE PHOSPHATASE TOTAL (test code = ALKP) 66 IUnit/L 45-117 N Note change in reference range due to change in reagent. [id number] 19:10:00* Test Item Value Reference Range Interpretation Comments TROPONIN-I (test code = TROPI) <0.015 ng/mL 0-0.045 N LACTIC [id number] 19:10:00* Test Item Value Reference Range Interpretation Comments LACTIC ACID (test code = LACT) 1.8 mmol/L 0.4-1.9 N BASIC METABOLIC [id number] 18:58:00* Test Item Value Reference Range Interpretation Comments SODIUM (test code = NA) 135 mmol/L 136-145 L POTASSIUM (test code = K) 4.0 mmol/L 3.5-5.1 N CHLORIDE (test code = CL) 100.0 mmol/L 98-107 N CARBON DIOXIDE (test code = CO2) mmol/L 21-32 ANION GAP (test code = GAP) 10-20 GLUCOSE (test code = GLU) mg/dL 74-106 BLOOD UREA NITROGEN (test code = BUN) mg/dL 7-18 GLOMERULAR FILTRATION RATE (test code = GFR) mL/min >=60 CREATININE (test code = CREAT) mg/dL 0.55-1.02 BUN/CREATININE RATIO (test code = BUN/CREA) 10-20 CALCIUM (test code = CA) mg/dL 8.5-10.1 HEPATIC FUNCTION [id number] 18:58:00* Test Item Value Reference Range Interpretation Comments TOTAL PROTEIN (test code = PROT) gram/dL 6.4-8.2 ALBUMIN (test code = ALB) g/dL 3.4-5.0 GLOBULIN (test code = GLOB) gram/dL 2.7-4.2 ALBUMIN/GLOBULIN RATIO (test code = A/G) 0.75-1.50 BILIRUBIN TOTAL (test code = BILT) mg/dL 0.0-1.0 BILIRUBIN DIRECT (test code = BILD) mg/dL 0.0-0.20 SGOT/AST (test code = AST) IUnit/L 15-37 SGPT/ALT (test code = ALT) IUnit/L 12-78 ALKALINE PHOSPHATASE TOTAL (test code = ALKP) IUnit/L 45-117 [id number] 18:58:00* Test Item Value Reference Range Interpretation Comments TROPONIN-I (test code = TROPI) ng/mL 0-0.045 - XR CHEST 1 [id number] 18:45:00 FAX: King Enamorado DO [place]: B St: [facility] FAX: Sukh Hilliard [facility] [phone] Name: GARY FERRELL [facility] : 1935 Age/S: 83/F [address] [facility] Unit #: [id number] Loc: [place] [address] Phys: King Enamorado DO Acct: [id number] Dis Date: Status: REG ER PHONE #: [phone] Exam Date: 03/06/20191821 FAX #: [phone] Reason: Altered Mental Status EXAMS: CPT CODE: [id number] XR CHEST 1 V 22441 REASON FOR EXAM: Altered Mental Status EXAM ORDER DATE: 03/06/2019 6:01 PM Ordering: King Enamorado DO Attending:King Enamorado DO Location: PROCEDURE: - XR CHEST 1 V COMPARISON: FINDINGS: Portable AP frontal view of the chest obtained at 6:17 PM shows clear lungs without evidence of consolidation. There is no evidence of effusion. The heart size is within normal limits. Pulmonary vasculatures are unremarkable. IMPRESSION: Mild hyperinflated lungs at 1845 Reported and signed by: Robert Marin M.D. CC: King Enamorado DO; Sukh Farah Technologist: INGRID MARTINEZ, RT(R); ... Trnscrd Date/Time/By: 03/06/2019 (184) : By: AmberlyVTL Orig Print D/T: S: 03/06/2019 (4067) PAGE 1 Signed Report CBC W/AUTO [id number] 18:44:00* Test Item Value Reference Range Interpretation Comments WHITE BLOOD CELL (test code = WBC) 9.1 K/mm3 4.5-12.5 N RED BLOOD CELL (test code = RBC) 4.56 mill/mm3 3.7-5.2 N HEMOGLOBIN (test code = HGB) 14.4 gram/dL 11.5-15.5 N HEMATOCRIT (test code = HCT) 44.5 % 36.0-46.0 N MEAN CELL VOLUME (test code = MCV) 97.6 fL 80-98 N MEAN CELL HGB (test code = MCH) 31.6 picogram 27.0-33.0 N MEAN CELL HGB CONCETRATION (test code = MCHC) 32.4 gram/dL 33.0-36. 0 L RED CELL DISTRIBUTION WIDTH (test code = RDW) 13.5 % 11.6-16. 2 N RED CELL DISTRIBUTION WIDTH SD (test code = RDW-SD) 48.1 fL 37 .0-51.0 N PLATELET COUNT (test code = PLT) 181 K/mm3 150-450 N MEAN PLATELET VOLUME (test code = MPV) 8.5 fL 6.7-11.0 N NEUTROPHIL % (test code = NT%) 81.6 % 39.0-69.0 H IMMATURE GRANULOCYTE % (test code = IG%) 0.5 % 0.0-5.0 N LYMPHOCYTE % (test code = LY%) 8.4 % 25.0-55.0 L MONOCYTE % (test code = MO%) 8.9 % 0.0-10.0 N EOSINOPHIL % (test code = EO%) 0.2 % 0.0-5.0 N BASOPHIL % (test code = BA%) 0.4 % 0.0-1.0 N NUCLEATED RBC % (test code = NRBC%) 0.0 % 0-0 N NEUTROPHIL # (test code = NT#) 7.45 K/mm3 1.8-7.7 N IMMATURE GRANULOCYTE # (test code = IG#) 0.05 x10 3/uL 0-0.03 H LYMPHOCYTE # (test code = LY#) 0.77 K/mm3 1.0-5.0 L MONOCYTE # (test code = MO#) 0.81 K/mm3 0-0.8 H EOSINOPHIL # (test code = EO#) 0.02 K/mm3 0.0-0.5 N BASOPHIL # (test code = BA#) 0.04 K/mm3 0.0-0.2 N NUCLEATED RBC # (test code = NRBC#) 0.00 K/mm3 0.0-0.1 N MANUAL DIFF REQUIRED (test code = MDIFF) NO CBC W/AUTO [id number] 18:43:00* Test Item Value Reference Range Interpretation Comments WHITE BLOOD CELL (test code = WBC) K/mm3 4.5-12.5 RED BLOOD CELL (test code = RBC) mill/mm3 3.7-5.2 HEMOGLOBIN (test code = HGB) 14.4 gram/dL 11.5-15.5 N HEMATOCRIT (test code = HCT) 44.5 % 36.0-46.0 N MEAN CELL VOLUME (test code = MCV) fL 80-98 MEAN CELL HGB (test code = MCH) picogram 27.0-33.0 MEAN CELL HGB CONCETRATION (test code = MCHC) gram/dL 33.0-36. 0 RED CELL DISTRIBUTION WIDTH (test code = RDW) % 11.6-16. 2 RED CELL DISTRIBUTION WIDTH SD (test code = RDW-SD) fL 37 .0-51.0 PLATELET COUNT (test code = PLT) K/mm3 150-450 MEAN PLATELET VOLUME (test code = MPV) fL 6.7-11.0 NEUTROPHIL % (test code = NT%) % 39.0-69.0 IMMATURE GRANULOCYTE % (test code = IG%) % 0.0-5.0 LYMPHOCYTE % (test code = LY%) % 25.0-55.0 MONOCYTE % (test code = MO%) % 0.0-10.0 EOSINOPHIL % (test code = EO%) % 0.0-5.0 BASOPHIL % (test code = BA%) % 0.0-1.0 NEUTROPHIL # (test code = NT#) K/mm3 1.8-7.7 LYMPHOCYTE # (test code = LY#) K/mm3 1.0-5.0 MONOCYTE # (test code = MO#) K/mm3 0-0.8 EOSINOPHIL # (test code = EO#) K/mm3 0.0-0.5 BASOPHIL # (test code = BA#) K/mm3 0.0-0.2 POC LACTIC [id number] 18:29:00* Test Item Value Reference Range Interpretation Comments POC LACTIC ACID (test code = POCLAC) 1.76 MMOL/L 0.4-2.2 N SCR MAMM BILATERAL MATILDA CAD DIGITAL [id number] 14:11:45 - SCR MAMM BILATERAL MATILDA CAD DIGITAL W/AUGMENTATIONBILATERAL DIGITAL SCREENING MAMMOGRAM 3D/2D WITH CAD WITH AUGMENTATION: 08/25/2018CLINICAL: Asymptomatic. Digital breast tomosynthesis was performed in addition to routine CC and MLO views. Current mammographic images were evaluated by either a Kids [employer] M-Vu or a Poach[employer] ImageChecker CAD (computer aided detection system). Comparison is made to exams dated 10/29/2013 mammogram, 03/02/2008 mammogram, and 12/08/2004 mammogram - [facility]-. There are scattered fibroglandular tissues in both breasts. There are benign vascular calcifications in both breasts. There also is a benign intramammary node in the right breast. Additionally, there is a be nign calcification in the left breast. Bilateral prepectoral breast implants wi th capsular calcifications are mammographically intact. No suspicious mass, arc hitectural distortion, malignant type calcification, or lymph node abnormality d etected. Breast architecture is stable compared to prior exams.IMPRESSION: SELMA Barron is no mammographic evidence of malignancy. Resume annual screening mammo graphy in one year. Cheryl Flor D.O. al/:08/26/2018 14:11:45 Collection Analyst nologist: Raquel Garsia FW, [facility]-FWletter sent: BIRADS 1-2 Norm al Mammogram BI-RADS: 2 Benign
--- NOTE | 2019-12-02 21:15 | NUR ---
Spoke to Rodri Carrillo at this time and they are refusing to take patient back at this time. Retort Pre Cooker states they must have two covid negative tests before patient is allowed back. Manufacturing Controls Engineer called at this time. Attempting to contact a casey saw operator.
--- NOTE | 2019-12-02 22:05 | NUR ---
Carina from [facility] speaking to Dr. Pinto at this time.
--- NOTE | 2019-12-02 22:10 | NUR ---
Carina states patient may go back to [facility] at 0900 12/03/19 and they will set up transfer to a covid positive unit.
--- NOTE | 2019-12-02 22:30 | NUR ---
Pt resting lying comfortable on her right side, asleep. 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 No further complaints at this time.
--- NOTE | 2019-12-02 22:46 | Diagnostic Imaging Report ---
EXAMINATION: CHEST SINGLE (PORTABLE) INDICATION: Altered metastases status COMPARISON: None FINDINGS: TUBES and LINES: None. LUNGS: Hyperexpanded lungs. Lungs are clear. No consolidations. PLEURA: No pleural effusion or pneumothorax. HEART AND MEDIASTINUM: The cardiomediastinal silhouette is unremarkable. Aortic calcifications. BONES AND SOFT TISSUES: No acute osseous lesion. Calcified breast implant devices. UPPER ABDOMEN: No free air under the diaphragm. IMPRESSION: Hyperexpanded lungs can be seen with obstructive pulmonary disease. Signed by: David Patel DO on 12/02/2019 10:42 PM
--- NOTE | 2019-12-03 01:54 | NUR ---
Pt asleep, VSS. Will continue to monitor
--- NOTE | 2019-12-03 04:55 | NUR ---
Pt woke up, placed a new warm blanket & pt went back to sleep with no complaint made. VSS
--- NOTE | 2019-12-03 09:14 | NUR ---
spoke to marisol at [facility] and states they will now allow pt to return.
--- NOTE | 2019-12-03 09:41 | NUR ---
CALLED AND SPOKE WITH ILIR THEY ARE TAKING PT BACK AGAIN.
[2019-12-03 10:58] VITALS: BP 157/68
== END 2019-12-03 11:01 ==
LOC: ER 19:47
DX: U07.1 COVID-19 (principal); F03.90 Unspecified dementia, unspecified severity, without behavioral disturbance, psychotic disturbance, mood disturbance, and anxiety; M62.81 Muscle weakness (generalized); K21.9 Gastro-esophageal reflux disease without esophagitis; J44.9 Chronic obstructive pulmonary disease, unspecified
CPT/HCPCS: 36415; 71045; 80053; 81001; 85025; 99284